=== PATIENT | female | born 1960 | race Caucasian/White ===

== ENCOUNTER 2017-11-24 18:48 | Observation (INO) | payer OTHER ==
[~2017-11-24] VITALS: Ht 170.2 cm; Wt 81.2 kg
[2017-11-24 19:55] LABS: HEMATOCRIT 38.4 % (36.0-46.0); HEMOGLOBIN 13.8 G/DL (11.9-15.5); MCH 30.5 PG (29.0-34.0); MCHC 35.9 G/DL (30.0-36.0); MCV 84.8 FL (83-99); PLATELET COUNT 187 K/uL (156-360); RBC DIS.WIDTH-CV 12.2 % (11.8-14.6); RBC DIS.WIDTH-SD 37.4 % (39-53); RED BLOOD COUNT 4.53 M/uL (3.80-5.20); WHITE BLOOD COUNT 5.8 K/uL (4.1-10.2)
[2017-11-24 20:02] LABS: INTER. NORMALIZED RATIO 0.9
[2017-11-24 20:04] LABS: CHLORIDE 99 mEq/L (99-109); SODIUM 133 mEq/L (136-147)
[2017-11-24 20:05] LABS: PTT 29.2 SEC (25-37)
[2017-11-24 20:10] LABS: CREATININE 1.2 mg/dL (0.6-1.3)
[2017-11-24 20:11] LABS: GFR ESTIMATE (CALCULATED) 50 mL/min/; UREA NITROGEN (BUN) 15 mg/dL (9-23)
[2017-11-24 20:18] LABS: TROP-I INTERPRETATION NEGATIVE; TROPONIN-I < 0.01 ng/mL (0.0-0.30)
[2017-11-24] MEDS ORDERED: VITAMIN D31000 UNIT PO (20:27)
[2017-11-24] MEDS ORDERED: LANTUS 3 M100 UNITS1 SC (20:27)
[2017-11-24] MEDS ORDERED: MEGARED OMEGA-1 EAC2 PO (20:27)
[2017-11-24] MEDS ORDERED: GLIPIZIDE10 MG PO (20:27)
[2017-11-24] MEDS ORDERED: ADULT ASPIRIN R81 MG PO (20:28)
[2017-11-24 20:39] LABS: GLUCOSE 661 mg/dL (70-99)
[2017-11-24 21:34] LABS: THYROTROPIN (TSH) 2.5 MIU/L (0.4-5.5)
[2017-11-24 22:22] VITALS: BP 116/58
[2017-11-25 00:33] LABS: TROP-I INTERPRETATION NEGATIVE; TROPONIN-I 0.02 ng/mL (0.0-0.30)
[2017-11-25 04:19] VITALS: BP 123/61
[2017-11-25 05:44] LABS: HEMATOCRIT 34.2 % (36.0-46.0); MCH 30.5 PG (29.0-34.0); MCHC 35.1 G/DL (30.0-36.0); MCV 86.8 FL (83-99); PLATELET COUNT 175 K/uL (156-360); RBC DIS.WIDTH-CV 12.5 % (11.8-14.6); RBC DIS.WIDTH-SD 39.5 % (39-53); RED BLOOD COUNT 3.94 M/uL (3.80-5.20); WHITE BLOOD COUNT 5.2 K/uL (4.1-10.2)
[2017-11-25 05:59] LABS: TROP-I INTERPRETATION NEGATIVE; TROPONIN-I < 0.01 ng/mL (0.0-0.30)
[2017-11-25 06:09] LABS: CHLORIDE 110 MEQ/L (99-109); POTASSIUM 3.6 MEQ/L (3.7-5.4); UREA NITROGEN (BUN) 14 mg/dL (9-23)
[2017-11-25 06:12] LABS: CREATININE 0.6 MG/DL (0.6-1.3); GFR ESTIMATE (CALCULATED) > 59 mL/min/; GLUCOSE 174 mg/dL (70-99); SODIUM 142 MEQ/L (136-147)
[2017-11-25 07:23] LABS: Estimated Average Glucose 367 mg/dL (70-123); HEMOGLOBIN A1c (GLYCOHEMOGLOB) 14.4 % HGB (Below 5.7)
[2017-11-25 07:51] VITALS: BP 107/56
[2017-11-25 11:34] VITALS: BP 109/59
== END 2017-11-25 14:52 | disposition home or self-care (01) ==
LOC: EME 18:48 → EDOF 20:45 → 5WEST 20:45 → EDOF 20:45 → ENRESERV 20:46 → 5WEST 21:57
PROVIDERS: Emergency Medicine; Hospitalist
DX: R07.9 Chest pain, unspecified (principal); E11.65 Type 2 diabetes mellitus with hyperglycemia; E03.9 Hypothyroidism, unspecified; E05.00 Thyrotoxicosis with diffuse goiter without thyrotoxic crisis or storm; Z79.4 Long term (current) use of insulin; Z79.82 Long term (current) use of aspirin; Z85.528 Personal history of other malignant neoplasm of kidney; Z90.5 Acquired absence of kidney; Z96.659 Presence of unspecified artificial knee joint; Z87.891 Personal history of nicotine dependence; Z88.0 Allergy status to penicillin; Z88.1 Allergy status to other antibiotic agents; Z88.2 Allergy status to sulfonamides
CPT/HCPCS: 71020; 80048; 82948; 83036; 84443; 84484; 85027; 85610; 85730; 93005; 99281; 99285; G0378; J1200; J1644; J1885; J2270; J2405; J7030

== ENCOUNTER 2017-12-22 09:44 | Day surgery (SDC) | payer OTHER ==
[~2017-12-22] VITALS: Ht 170.2 cm; Wt 88.4 kg
[~2017-12-22 09:44] MED LIST: ADULT ASPIRIN R81 MG PO; DAILY MULTIPLE1 EACH PO; GLIPIZIDE10 MG PO; LANTUS 3 M100 UNITS1 SC; MEGARED OMEGA-1 EAC2 PO; VITAMIN D31000 UNIT PO
[2017-12-22 21:35] VITALS: BP 103/63
[2017-12-22 23:10] VITALS: BP 108/61
[2017-12-23 00:20] VITALS: BP 106/60
[2017-12-23 01:32] VITALS: BP 108/65
[2017-12-23 02:30] VITALS: BP 110/65
[2017-12-23 04:42] LABS: BASOPHIL (%) 0.7 % (0-1); EOSINOPHIL (%) 2.5 % (0-5); EOSINOPHIL COUNT 0.2 K/uL (0-0.3); HEMATOCRIT 37.9 % (36.0-46.0); HEMOGLOBIN 13.1 G/DL (11.9-15.5); IMMATURE GRANULOCYTE (%) 0.3 % (0.0-0.7); LYMPHOCYTE COUNT 2.2 K/uL (1.0-2.8); MCH 30.1 PG (29.0-34.0); MCHC 34.6 G/DL (30.0-36.0); MCV 87.1 FL (83-99); MONOCYTE (%) 7.2 % (3-12); MONOCYTE COUNT 0.4 K/uL (0-0.8); NEUTROPHIL (%) 53.3 % (45-76); NEUTROPHIL COUNT 3.3 K/uL (1.8-6.4); PLATELET COUNT 185 K/uL (156-360); RBC DIS.WIDTH-CV 12.7 % (11.8-14.6); RBC DIS.WIDTH-SD 40.8 % (39-53); RED BLOOD COUNT 4.35 M/uL (3.80-5.20); WHITE BLOOD COUNT 6.1 K/uL (4.1-10.2)
[2017-12-23 04:55] LABS: CHLORIDE 107 mEq/L (99-109); POTASSIUM 4.3 mEq/L (3.7-5.4); SODIUM 138 mEq/L (136-147)
[2017-12-23 04:56] LABS: GLUCOSE 266 mg/dL (70-99)
[2017-12-23 05:00] LABS: CREATININE 0.8 mg/dL (0.6-1.3); GFR ESTIMATE (CALCULATED) > 59 mL/min/
[2017-12-23 05:01] LABS: UREA NITROGEN (BUN) 15 mg/dL (9-23)
[2017-12-23 09:09] VITALS: BP 119/61
[2017-12-23] MEDS ORDERED: ATORVASTATIN CA40 MG PO (09:58)
[2017-12-23] MEDS ORDERED: ASPIR-LOW81 MG PO (09:58)
[2017-12-23] MEDS ORDERED: CLOPIDOGREL75 MG PO (09:58)
[2017-12-23 12:19] VITALS: BP 122/66
== END 2017-12-23 12:53 | disposition home or self-care (01) ==
LOC: CATH 09:44 → 4EAST 12:58 → 2SOUTH 12:58 → ENRESERV 13:03 → 4EAST 21:59
PROVIDERS: Internal Medicine Cardiovascular Disease
DX: I25.10 Atherosclerotic heart disease of native coronary artery without angina pectoris (principal); E11.9 Type 2 diabetes mellitus without complications; Z90.5 Acquired absence of kidney; Z85.528 Personal history of other malignant neoplasm of kidney; Z87.891 Personal history of nicotine dependence; E66.9 Obesity, unspecified; Z68.30 Body mass index [BMI] 30.0-30.9, adult; Z88.0 Allergy status to penicillin; Z88.1 Allergy status to other antibiotic agents; Z88.2 Allergy status to sulfonamides
CPT/HCPCS: 80048; 82948; 85025; 85347; 93005; C1725; C1769; C1874; C1887; C1894; G0378; J0583; J1200; J1644; J1815; J2250; J3010; J7050